=== PATIENT | male | born 1940 | race Caucasian/White ===

== ENCOUNTER 2019-03-20 13:25 | Outpatient (CLI) | payer MEDICARE, OTHER | END 2019-03-20 23:59 | disposition home or self-care (01) | LOC: VAS 13:25 | PROVIDERS: ATTEND Orthopaedic Surgery | DX: I82.401 Acute embolism and thrombosis of unspecified deep veins of right lower extremity (principal); M79.89 Other specified soft tissue disorders; Z96.651 Presence of right artificial knee joint; Z87.891 Personal history of nicotine dependence | CPT/HCPCS: 93971 ==

== ENCOUNTER 2023-07-09 19:10 | Inpatient (IN) | payer OTHER, MEDICARE ==
[~2023-07-09] VITALS: Ht 165.1 cm; Wt 65.0 kg
[2023-07-09 20:17] LABS: BASOPHILS % (AUTO) 0.7 % (0-1); EOSINOPHILS % (AUTO) 0.1 % (0-6); HEMATOCRIT 39.4 % (42.0-52.0); HEMOGLOBIN 13.5 g/dl (14.0-17.9); LYMPHOCYTES # (AUTO) 1.1 X10'3 (1.1-4.8); LYMPHOCYTES % (AUTO) 17.7 % (21-51); MEAN CORPUSCULAR HEMOGLOBIN 32.6 PG (27.0-31.0); MEAN CORPUSCULAR HGB CONC 34.3 g/dL (33.0-36.5); MEAN CORPUSCULAR VOLUME 95.3 FL (78-98); MONOCYTES # (AUTO) 0.6 X10'3 (0-0.9); NEUTROPHILS # (AUTO) 4.2 X10'3 (1.8-7.7); NEUTROPHILS % (AUTO) 71.5 % (42-75); PLATELET COUNT 254 X10'3 (140-440); RED BLOOD COUNT 4.14 X10'6 (4.70-6.10); RED CELL DISTRIBUTION WIDTH 14.3 % (11.5-14.5); WHITE BLOOD COUNT 5.9 X10'3 (4.5-11.0)
[2023-07-09 20:24] LABS: ALANINE AMINOTRANSFERASE 62 U/L (12-78); ALBUMIN 3.3 G/DL (3.4-5.0); ALKALINE PHOSPHATASE 52 IU/L (46-116); ANION GAP 10 (8-16); ASPARTATE AMINO TRANSFERASE 60 U/L (10-37); BILIRUBIN,TOTAL 1.2 MG/DL (0.1-1.0); BLOOD UREA NITROGEN 36 MG/DL (7-18); BUN/CREATININE RATIO 36.4 (10.0-20.0); CALCIUM 9.3 MG/DL (8.5-10.1); CHLORIDE 103 MMOL/L (99-107); CREATININE 0.99 MG/DL (0.60-1.10); GLUCOSE 87 MG/DL (70-104); SODIUM 140 MMOL/L (135-145); TOTAL CARBON DIOXIDE 27.4 MMOL/L (24-32); TOTAL PROTEIN 6.5 G/DL (6.4-8.2); eCRCL 48 ML/MIN; eGFR 72 ML/MIN
[2023-07-09 20:37] LABS: THYROID STIMULATING HORMONE 0.89 ulU/ml (0.34-4.50)
[2023-07-09 20:53] LABS: ETHANOL < 10 MG/DL (<10)
[2023-07-09 21:40] LABS: BILIRUBIN,URINE NEGATIVE (Neg); CLARITY,URINE CLEAR (Clear); COLOR,URINE YELLOW (Yellow); GLUCOSE, URINE NEGATIVE (Neg); KETONES,URINE 15 mg/dl (Neg); LEUKOCYTE ESTERASE ,URINE NEGATIVE (Neg); NITRITES, URINE NEGATIVE (Neg); OCCULT BLOOD,URINE NEGATIVE (Neg); PH,URINE 5.5 (4.8-8.0); PROTEIN,URINE NEGATIVE (Neg); UROBILINOGEN,URINE 0.2 E.U/dL (0.2-1.0)
[2023-07-09 21:43] LABS: UA COLLECTION TYPE NON-SPECIFIED
[2023-07-09 21:50] LABS: URINE AMPHETAMINE SCREEN NEGATIVE (Neg); URINE BARBITUATE SCREEN NEGATIVE (Neg); URINE BENZODIAZEPINES SCREEN NEGATIVE (Neg); URINE CANNABINOID SCREEN NEGATIVE (Neg); URINE COCAINE SCREEN NEGATIVE (Neg); URINE METHADONE SCREEN NEGATIVE (Neg); URINE OPIATE SCREEN NEGATIVE (Neg); URINE PHENCYCLIDINE SCREEN NEGATIVE (Neg)
[2023-07-10] MEDS ORDERED: QUETIAPINE 200 MG TAB.SR.24H PO SCH
[2023-07-10] MEDS: QUETIAPINE 50 MG TAB.SR.24H PO ONE (00:25)
[2023-07-10] MEDS: diphenhydrAMINE 50 mg/ml inj IM ONE (01:32)
[2023-07-10] MEDS: OLANZapine **IM** 10 mg inj. IM ONE (01:33)
[2023-07-10] MEDS ORDERED: BISO5TAB PO (02:01)
[2023-07-10] MEDS ORDERED: DOCU-395 PO (02:01)
[2023-07-10] MEDS ORDERED: DOXY150T8 PO (02:01)
[2023-07-10] MEDS ORDERED: ASPI-10 PO (02:05)
[2023-07-10] MEDS ORDERED: ACET-1008 PO (02:05)
[2023-07-10] MEDS ORDERED: ATOR20TA66 PO (02:05)
[2023-07-10] MEDS: atorvastatin 20mg tablet PO SCH (08:00)
[2023-07-10] MEDS: aspirin 81mg, enteric-coated 1 TAB TABLET.DR PO SCH (08:00)
[2023-07-10] MEDS: atenolol 50mg tablet PO SCH (08:00)
[2023-07-10] MEDS: docusate sod 250mg capsule PO SCH (08:00)
[2023-07-10] MEDS: DOXYCYCLINE 100MG CAPSULE PO SCH (08:30)
[2023-07-10] MEDS: QUEtiapine 25mg tablet PO SCH (12:00)
[2023-07-10] MEDS: acetaminophen 325mg tablet PO PRN (12:54)
[2023-07-10] MEDS: LIDOcaine 5% patch TP SCH (13:29)
[2023-07-11] MEDS: QUEtiapine 25mg tablet PO STA (00:07)
[2023-07-11] MEDS: normal saline 1000ml 1,000 ML IV SCH (01:15)
[2023-07-11] MEDS ORDERED: PERFLUTREN PROTEIN-A MICROSPHR (Optison) 0.22 MG/ML 3ML VIAL IV PRN (23:35)
[2023-07-12] VITALS (11 sets, daily range): BP systolic 99–136; BP diastolic 60–90; PULSE 63–80; RESP 14–18; TEMP 97.3–97.9; O2SAT 95–100
[2023-07-12 06:45] LABS: BASOPHILS # (AUTO) 0.1 X10'3 (0-0.2); BASOPHILS % (AUTO) 1.2 % (0-1); EOSINOPHILS # (AUTO) 0.1 X10'3 (0-0.9); EOSINOPHILS % (AUTO) 2.1 % (0-6); HEMATOCRIT 37.2 % (42.0-52.0); HEMOGLOBIN 12.3 g/dl (14.0-17.9); LYMPHOCYTES % (AUTO) 21.4 % (21-51); MEAN CORPUSCULAR HEMOGLOBIN 31.9 PG (27.0-31.0); MEAN CORPUSCULAR HGB CONC 33.2 g/dL (33.0-36.5); MEAN CORPUSCULAR VOLUME 96.2 FL (78-98); MEAN PLATELET VOLUME 7.3 FL (7.4-10.4); MONOCYTES # (AUTO) 0.5 X10'3 (0-0.9); MONOCYTES % (AUTO) 10.4 % (2-12); NEUTROPHILS # (AUTO) 3.2 X10'3 (1.8-7.7); NEUTROPHILS % (AUTO) 64.9 % (42-75); PLATELET COUNT 227 X10'3 (140-440); RED BLOOD COUNT 3.86 X10'6 (4.70-6.10); RED CELL DISTRIBUTION WIDTH 13.9 % (11.5-14.5); WHITE BLOOD COUNT 4.9 X10'3 (4.5-11.0)
[2023-07-12 06:50] LABS: HEMOGLOBIN A1C 5.7 % (4.5-6.2)
[2023-07-12 07:46] LABS: ALANINE AMINOTRANSFERASE 35 U/L (12-78); ALBUMIN 2.8 G/DL (3.4-5.0); ALKALINE PHOSPHATASE 51 IU/L (46-116); ANION GAP 5 (8-16); ASPARTATE AMINO TRANSFERASE 28 U/L (10-37); BILIRUBIN,TOTAL 0.6 MG/DL (0.1-1.0); BLOOD UREA NITROGEN 22 MG/DL (7-18); BUN/CREATININE RATIO 34.4 (10.0-20.0); CHLORIDE 109 MMOL/L (99-107); CHOL/HDL RATIO 2.4 (0.00-4.99); CHOLESTEROL 143 MG/DL (0-200); CREATININE 0.64 MG/DL (0.60-1.10); GLUCOSE 95 MG/DL (70-104); HDL CHOLESTEROL 59 MG/DL (35-60); LDL CHOLESTEROL 70 MG/DL (50-100); POTASSIUM 3.2 MMOL/L (3.5-5.1); SODIUM 145 MMOL/L (135-145); TOTAL CARBON DIOXIDE 30.9 MMOL/L (24-32); TOTAL PROTEIN 5.5 G/DL (6.4-8.2); TRIGLYCERIDES 30 MG/DL (20-135); eCRCL 75 ML/MIN; eGFR > 90 ML/MIN
[2023-07-12] MEDS: aspirin 81mg, enteric-coated 1 TAB TABLET.DR PO SCH (08:00)
[2023-07-12] MEDS: atorvastatin 20mg tablet PO SCH (08:00)
[2023-07-12] MEDS ORDERED: magnesium 2GM in 50ml NS 50 ML IV PRN (10:40)
[2023-07-12] MEDS ORDERED: potassium Cl 40MEQ/1/2NS 520ml 520 ML IV PRN (10:40)
[2023-07-12] MEDS ORDERED: magnesium Cl slow-release 64mg tablet PO PRN (10:40)
[2023-07-12] MEDS ORDERED: potassium Cl 20 mEq SR tablet PO PRN ×2 (10:40)
[2023-07-12] MEDS ORDERED: magnesium 4gm in 100ml NS 100 ML IV PRN (10:40)
[2023-07-12] MEDS ORDERED: POTASSIUM BICARB 20meq eff tab 20 MEQ TABLET.EFF PO PRN (10:42)
[2023-07-12] MEDS: POTASSIUM BICARB 20meq eff tab 20 MEQ TABLET.EFF PO PRN (11:01)
[2023-07-12] MEDS: clopidogrel 75mg tablet PO SCH (17:25)
[2023-07-12] MEDS: K and/or MAG REPLACEMENT MC SCH (19:57)
[2023-07-12] MEDS: LORazepam 2 mg/ml vial IV ONE (23:30)
[2023-07-13] VITALS (10 sets, daily range): BP systolic 108–150; BP diastolic 69–88; PULSE 65–85; RESP 12–20; TEMP 97.3–97.8; O2SAT 96–100
[2023-07-13 06:27] LABS: BASOPHILS # (AUTO) 0.1 X10'3 (0-0.2); BASOPHILS % (AUTO) 0.9 % (0-1); EOSINOPHILS # (AUTO) 0.2 X10'3 (0-0.9); EOSINOPHILS % (AUTO) 2.5 % (0-6); HEMATOCRIT 42.2 % (42.0-52.0); HEMOGLOBIN 13.9 g/dl (14.0-17.9); LYMPHOCYTES # (AUTO) 1.1 X10'3 (1.1-4.8); LYMPHOCYTES % (AUTO) 17.2 % (21-51); MEAN CORPUSCULAR HEMOGLOBIN 32.1 PG (27.0-31.0); MEAN CORPUSCULAR HGB CONC 32.9 g/dL (33.0-36.5); MEAN CORPUSCULAR VOLUME 97.7 FL (78-98); MEAN PLATELET VOLUME 7.9 FL (7.4-10.4); MONOCYTES # (AUTO) 0.6 X10'3 (0-0.9); MONOCYTES % (AUTO) 9.3 % (2-12); NEUTROPHILS # (AUTO) 4.5 X10'3 (1.8-7.7); NEUTROPHILS % (AUTO) 70.1 % (42-75); PLATELET COUNT 236 X10'3 (140-440); RED BLOOD COUNT 4.32 X10'6 (4.70-6.10); RED CELL DISTRIBUTION WIDTH 14.2 % (11.5-14.5); WHITE BLOOD COUNT 6.5 X10'3 (4.5-11.0)
[2023-07-13 07:29] LABS: ALANINE AMINOTRANSFERASE 34 U/L (12-78); ALBUMIN 3.1 G/DL (3.4-5.0); ALBUMIN/GLOBULIN RATIO 1.1 (1.1-1.5); ALKALINE PHOSPHATASE 59 IU/L (46-116); ANION GAP 3 (8-16); ASPARTATE AMINO TRANSFERASE 31 U/L (10-37); BILIRUBIN,TOTAL 0.8 MG/DL (0.1-1.0); BLOOD UREA NITROGEN 14 MG/DL (7-18); BUN/CREATININE RATIO 24.1 (10.0-20.0); CALCIUM 8.2 MG/DL (8.5-10.1); CHLORIDE 107 MMOL/L (99-107); CREATININE 0.58 MG/DL (0.60-1.10); GLUCOSE 89 MG/DL (70-104); MAGNESIUM 1.7 MG/DL (1.5-2.4); POTASSIUM 3.9 MMOL/L (3.5-5.1); SODIUM 142 MMOL/L (135-145); TOTAL CARBON DIOXIDE 32.1 MMOL/L (24-32); eCRCL 82 ML/MIN; eGFR > 90 ML/MIN
[2023-07-14] VITALS (8 sets, daily range): BP systolic 96–131; BP diastolic 62–86; PULSE 74–93; RESP 12–20; TEMP 96.6–97.8; O2SAT 94–100
[2023-07-14 06:22] LABS: BASOPHILS # (AUTO) 0.1 X10'3 (0-0.2); BASOPHILS % (AUTO) 1.2 % (0-1); EOSINOPHILS # (AUTO) 0.1 X10'3 (0-0.9); HEMATOCRIT 39.6 % (42.0-52.0); HEMOGLOBIN 13.5 g/dl (14.0-17.9); LYMPHOCYTES # (AUTO) 1.2 X10'3 (1.1-4.8); LYMPHOCYTES % (AUTO) 24.6 % (21-51); MEAN CORPUSCULAR HEMOGLOBIN 32.7 PG (27.0-31.0); MEAN CORPUSCULAR HGB CONC 34.2 g/dL (33.0-36.5); MEAN CORPUSCULAR VOLUME 95.7 FL (78-98); MEAN PLATELET VOLUME 7.7 FL (7.4-10.4); MONOCYTES # (AUTO) 0.5 X10'3 (0-0.9); MONOCYTES % (AUTO) 9.5 % (2-12); NEUTROPHILS % (AUTO) 61.7 % (42-75); PLATELET COUNT 245 X10'3 (140-440); RED BLOOD COUNT 4.13 X10'6 (4.70-6.10); RED CELL DISTRIBUTION WIDTH 14.3 % (11.5-14.5); WHITE BLOOD COUNT 4.9 X10'3 (4.5-11.0)
[2023-07-14 06:45] LABS: ALANINE AMINOTRANSFERASE 29 U/L (12-78); ALBUMIN 2.6 G/DL (3.4-5.0); ALBUMIN/GLOBULIN RATIO 0.9 (1.1-1.5); ALKALINE PHOSPHATASE 58 IU/L (46-116); ANION GAP 6 (8-16); ASPARTATE AMINO TRANSFERASE 25 U/L (10-37); BILIRUBIN,TOTAL 0.8 MG/DL (0.1-1.0); BLOOD UREA NITROGEN 17 MG/DL (7-18); BUN/CREATININE RATIO 25.8 (10.0-20.0); CHLORIDE 107 MMOL/L (99-107); CREATININE 0.66 MG/DL (0.60-1.10); GLUCOSE 92 MG/DL (70-104); MAGNESIUM 1.6 MG/DL (1.5-2.4); POTASSIUM 3.5 MMOL/L (3.5-5.1); SODIUM 141 MMOL/L (135-145); TOTAL CARBON DIOXIDE 27.9 MMOL/L (24-32); TOTAL PROTEIN 5.5 G/DL (6.4-8.2); eCRCL 72 ML/MIN; eGFR > 90 ML/MIN
[2023-07-14] MEDS: QUEtiapine 25mg tablet PO SCH (09:30)
[2023-07-15] VITALS (7 sets, daily range): BP systolic 108–132; BP diastolic 67–82; PULSE 79–90; RESP 14–20; TEMP 97.3–98.8; O2SAT 91–100
[2023-07-15 06:14] LABS: MAGNESIUM 1.6 MG/DL (1.5-2.4); POTASSIUM 3.5 MMOL/L (3.5-5.1)
[2023-07-15] MEDS: acetaminophen 325mg tablet PO PRN (20:47)
[2023-07-16 06:00] VITALS: BP 140/79; PULSE 92; RESP 16; TEMP 98.3; O2SAT 98
[2023-07-16 07:10] LABS: MAGNESIUM 1.7 MG/DL (1.5-2.4); POTASSIUM 3.6 MMOL/L (3.5-5.1)
[2023-07-16 08:00] VITALS: RESP 18
[2023-07-16 11:52] VITALS: BP 109/68; PULSE 89; RESP 16; TEMP 97.7; O2SAT 97
[2023-07-16 12:00] VITALS: RESP 16; O2SAT 97
[2023-07-16 19:00] VITALS: BP 106/61; PULSE 95; RESP 18; TEMP 97.3; O2SAT 99
[2023-07-16 22:00] VITALS: BP 87/53; PULSE 89; RESP 16; TEMP 97.5; O2SAT 98
[2023-07-17 07:00] VITALS: RESP 16
[2023-07-17 07:05] VITALS: BP 133/85; PULSE 89; RESP 14; TEMP 97.4; O2SAT 93
[2023-07-17 11:04] VITALS: BP 119/60; PULSE 50; RESP 18; TEMP 97.7; O2SAT 93
[2023-07-17 11:26] VITALS: BP 111/71; PULSE 84; RESP 16; TEMP 98.1; O2SAT 95
[2023-07-17 18:59] VITALS: BP 132/74; PULSE 83; RESP 18; TEMP 97.3; O2SAT 97
[2023-07-17 22:00] VITALS: BP 118/62; PULSE 91; RESP 16; TEMP 97.6; O2SAT 97
[2023-07-18 07:00] VITALS: BP 135/77; PULSE 73; RESP 18; TEMP 97.9; O2SAT 98
[2023-07-18 07:55] VITALS: RESP 18; O2SAT 98
[2023-07-18] MEDS ORDERED: iohexol 350MG/ML 100ml bottle IV ONE (10:21)
[2023-07-18 11:39] VITALS: BP 94/55; PULSE 86; RESP 14; TEMP 97.6; O2SAT 93
[2023-07-18 18:00] VITALS: BP 104/65; PULSE 76; RESP 18; TEMP 97.3; O2SAT 98
[2023-07-18 19:00] VITALS: RESP 18; O2SAT 98
[2023-07-18] MEDS: prednisone 10mg tablet PO ONE (20:00)
[2023-07-18 22:12] VITALS: BP 107/59; PULSE 66; RESP 14; TEMP 98.6; O2SAT 94
[2023-07-19] MEDS: prednisone 10mg tablet PO ONE ×3 (01:31→12:00)
[2023-07-19 02:09] LABS: BASOPHILS # (AUTO) 0.1 X10'3 (0-0.2); BASOPHILS % (AUTO) 1.5 % (0-1); EOSINOPHILS # (AUTO) 0.1 X10'3 (0-0.9); EOSINOPHILS % (AUTO) 1.4 % (0-6); HEMATOCRIT 37.9 % (42.0-52.0); HEMOGLOBIN 12.8 g/dl (14.0-17.9); LYMPHOCYTES # (AUTO) 1.7 X10'3 (1.1-4.8); MEAN CORPUSCULAR HEMOGLOBIN 32.4 PG (27.0-31.0); MEAN CORPUSCULAR HGB CONC 33.7 g/dL (33.0-36.5); MEAN CORPUSCULAR VOLUME 95.9 FL (78-98); MEAN PLATELET VOLUME 7.3 FL (7.4-10.4); MONOCYTES # (AUTO) 0.7 X10'3 (0-0.9); NEUTROPHILS # (AUTO) 4.3 X10'3 (1.8-7.7); NEUTROPHILS % (AUTO) 63.1 % (42-75); PLATELET COUNT 320 X10'3 (140-440); RED BLOOD COUNT 3.95 X10'6 (4.70-6.10); RED CELL DISTRIBUTION WIDTH 14.3 % (11.5-14.5); WHITE BLOOD COUNT 6.9 X10'3 (4.5-11.0)
[2023-07-19 02:23] LABS: ALANINE AMINOTRANSFERASE 30 U/L (12-78); ALBUMIN 3.3 G/DL (3.4-5.0); ALKALINE PHOSPHATASE 71 IU/L (46-116); ANION GAP 9 (8-16); ASPARTATE AMINO TRANSFERASE 29 U/L (10-37); BILIRUBIN,TOTAL 0.7 MG/DL (0.1-1.0); BLOOD UREA NITROGEN 29 MG/DL (7-18); BUN/CREATININE RATIO 39.7 (10.0-20.0); CALCIUM 9.2 MG/DL (8.5-10.1); CHLORIDE 106 MMOL/L (99-107); CREATININE 0.73 MG/DL (0.60-1.10); GLUCOSE 96 MG/DL (70-104); POTASSIUM 4.1 MMOL/L (3.5-5.1); SODIUM 143 MMOL/L (135-145); TOTAL CARBON DIOXIDE 28.2 MMOL/L (24-32); TOTAL PROTEIN 6.7 G/DL (6.4-8.2); eCRCL 66 ML/MIN; eGFR > 90 ML/MIN
[2023-07-19 06:00] VITALS: BP 105/64; PULSE 77; RESP 16; TEMP 97.6; O2SAT 94
[2023-07-19 07:00] VITALS: RESP 16; O2SAT 94
[2023-07-19 07:50] VITALS: RESP 16; O2SAT 94
[2023-07-19 12:14] VITALS: BP 101/58; PULSE 78; RESP 17; TEMP 97.1; O2SAT 96
[2023-07-19 12:30] VITALS: RESP 13; RESP 16; O2SAT 96
[2023-07-19] MEDS ORDERED: iohexol 350MG/ML 100ml bottle IV ONE (13:26)
[2023-07-19 18:00] VITALS: BP 104/62; PULSE 66; RESP 15; TEMP 97.2; O2SAT 93
[2023-07-19] MEDS: ziprasidone IM 20mg inj **IM only IM ONE (18:40)
[2023-07-19] MEDS ORDERED: ziprasidone IM 20mg inj **IM only IM PRN (18:40)
[2023-07-20 06:50] VITALS: BP 121/65; PULSE 66; RESP 18; TEMP 97; O2SAT 93
[2023-07-20 10:00] VITALS: BP 99/53; PULSE 66; RESP 18; TEMP 97.2; O2SAT 92
[2023-07-20 18:00] VITALS: BP 117/64; PULSE 93; RESP 19; TEMP 98.5; O2SAT 93
[2023-07-21 06:00] VITALS: BP 120/69; PULSE 61; RESP 18; TEMP 97.8; O2SAT 97
[2023-07-21 09:15] VITALS: RESP 18; O2SAT 97
[2023-07-21 10:00] VITALS: BP 122/74; PULSE 67; RESP 18; TEMP 97.1; O2SAT 96
[2023-07-21 18:00] VITALS: BP 119/72; PULSE 63; RESP 18; TEMP 98.1; O2SAT 95
[2023-07-21 22:00] VITALS: BP 100/62; PULSE 78; RESP 18; TEMP 98.2; O2SAT 98
[2023-07-22 06:47] VITALS: BP 125/79; PULSE 82; RESP 18; TEMP 97.6; O2SAT 100
[2023-07-22 08:00] VITALS: RESP 18
[2023-07-22 18:00] VITALS: BP 101/65; PULSE 81; RESP 14; TEMP 97.9; O2SAT 99
[2023-07-22 21:00] VITALS: RESP 14; O2SAT 98
[2023-07-22 22:00] VITALS: BP 100/63; PULSE 85; RESP 19; TEMP 97.9; O2SAT 100
[2023-07-23 06:23] VITALS: BP 122/64; PULSE 64; RESP 19; TEMP 98.1; O2SAT 95
[2023-07-23 08:00] VITALS: RESP 18; RESP 19; O2SAT 95
[2023-07-23 12:08] VITALS: BP 118/99; PULSE 83; RESP 17; TEMP 98.7; O2SAT 98
[2023-07-23 16:30] VITALS: BP 147/97
[2023-07-23 18:00] VITALS: BP 108/71; PULSE 81; RESP 17; TEMP 98.6; O2SAT 99
[2023-07-23 22:00] VITALS: BP 110/67; PULSE 82; RESP 16; TEMP 97.8; O2SAT 98
[2023-07-24 06:44] VITALS: BP 148/84; PULSE 78; RESP 16; TEMP 97.5; O2SAT 98
[2023-07-24 08:00] VITALS: RESP 18; O2SAT 98
[2023-07-24] MEDS ORDERED: QUET25TA36 PO (08:53)
[2023-07-24] MEDS ORDERED: CLOP75TA34 PO (08:53)
[2023-07-24 10:29] VITALS: BP 149/74; PULSE 69; RESP 18; TEMP 97.5; O2SAT 98
== END 2023-07-24 13:40 | disposition home or self-care (01) | DRG 65 ==
LOC: ER 19:10 → ED HOLD 07-11 23:38 → EDBEDREQ 07-11 23:52 → SUR 3N 07-12 00:35
PROVIDERS: ADMIT Internal Medicine Critical Care Medicine; ATTEND Internal Medicine
DX: I63.9 Cerebral infarction, unspecified (principal); F02.B18 Dementia in other diseases classified elsewhere, moderate, with other behavioral disturbance; F02.B2 Dementia in other diseases classified elsewhere, moderate, with psychotic disturbance; E87.6 Hypokalemia; Z20.822 Contact with and (suspected) exposure to COVID-19; D64.9 Anemia, unspecified; G31.83 Neurocognitive disorder with Lewy bodies; Z66 Do not resuscitate; Z91.041 Radiographic dye allergy status; Z79.899 Other long term (current) drug therapy; Z79.82 Long term (current) use of aspirin
CPT/HCPCS: 36415; 70450; 70551; 71045; 80053; 80061; 80305; 80320; 81003; 83036; 83735; 84132; 84443; 85025; 87081; 87811; 92508; 92616; 93306; 96372; 97161; 97530; 99284; A6212; A6223; A6253; A6258; A6446; A6449; G0378; J1200; J2060; J3490; J7030; J7512; Q9967